=== PATIENT | male | born 1965 | race African-American/Black ===

== ENCOUNTER 2019-02-10 14:18 | Emergency (ER) | payer MEDICAID ==
[~2019-02-10] VITALS: Ht 177.8 cm; Wt 83.9 kg
[2019-02-10 14:37] VITALS: BP 128/82
--- NOTE | 2019-02-10 14:41 | Emergency Room Report ---
History of Present Illness General Chief Complaint: Upper Extremity Injury Source: Patient Present Illness HPI Patient is a 53-year-old male presents for increased pain to his right upper extremity. Patient reports having his right hand caught between a wall and a dumpster. This occurred last night approximately 14 hours to being seen. He reports having a tetanus vaccine in the last 2 years. He is right-hand dominant. He denies other areas of injury. He reports having increased pain to his hand. He had taken Excedrin PM without any improvement. Allergies: Coded Allergies: No Known Allergies (Unverified , 02/10/19) Patient History Past Medical History: see triage record Reviewed Nursing Documentation: PMH: Agreed; PSxH: Agreed Nursing Documentation-PMH Past Medical History: No History, Except For Review of Systems All Other Systems: negative except mentioned in HPI Physical Exam Vital Signs Date Time Temp Pulse Resp B/P (MAP) Pulse Ox O2 Delivery O2 Flow Rate FiO2 02/10/19 14:21 97.9 98 19 128/82 (97) 97 Room Air General Appearance: well appearing, no apparent distress, alert, GCS 15 Head: normocephalic, atraumatic ENT: hearing grossly normal, normal voice Neck: full range of motion, supple Respiratory: no respiratory distress, speaking full sentences Cardiovascular #1: normal inspection Musculoskeletal: decreased range of mation Neurologic: alert, motor strength/tone normal, 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 Differential diagnosis include was not limited to contusion, abrasion, fracture among others. Patient has a benign exam and does not appear to require any laboratory testing at this time. Patient's hand appears to have some soft tissue swelling is concerning for fracture. X-ray imaging was ordered. Patient does not appear to have any significantly decreased range of motion at this time. There is some swelling noted to multiple fingers and patient does have some prior history of HIV. Patient will be given prescription for oral antibiotics. He is advised to follow-up with primary care physician for recheck. Patient was advised to remain off work for the next 3 days. He is to return if worse. Is advised to return if worse. This medical record is generated with [employer] wire bender software. There may be some wire bender discrepancies related to use of this software Last Vital Signs Date Time Temp Pulse Resp B/P (MAP) Pulse Ox O2 Delivery O2 Flow Rate FiO2 02/10/19 14:21 97.9 98 19 128/82 (97) 97 Room Air Status: improved Disposition: HOME, SELF-CARE Condition: Stable Scripts Cephalexin* (KEFLEX*) 500 Mg Capsule 500 MG ORAL EVERY 6 HOURS, #28 CAP Prov: Judd Miles MD 02/10/19 Ibuprofen* (MOTRIN*) 600 Mg Tablet 600 MG ORAL Q6H PRN for For Pain, #30 TAB 0 Refills Prov: Judd Miles MD 02/10/19 Judd Miles MD Feb 10, 2019 14:41
[2019-02-10] MEDS ORDERED: IBUPROFEN600 MG ORAL (14:44)
[2019-02-10] MEDS ORDERED: CEPHALEXIN500 MG ORAL (14:44)
[2019-02-10] MEDS ORDERED: Bacitracin Oint UD TOPIC ONE ×2 (15:25→15:30)
--- NOTE | 2019-02-10 15:30 | NUR ---
ER DISCHARGE NOTE:pt. had injury and skin abrasion on top of right hand, bacitricin and dressing applied Patient is cleared to be discharged per ERMD, pt is aox4, on room air, with stable vital signs. pt was given dc and prescription instructions, pt was able to verbalize understanding, pt is able to ambulate with steady gait. pt took all belongings.
[2019-02-10 15:32] VITALS: BP 128/82
--- NOTE | 2019-02-11 08:39 | Diagnostic Imaging Report ---
Indication: Pain, trauma Technique: 3 views right hand Comparison: none Findings: Exam is somewhat limited as per technologist patient unable to tolerate optimal oblique positioning. There is dorsal soft tissue swelling. No definite acute fractures. No dislocations. Impression: Soft tissue swelling. No definite acute bony trauma
== END 2019-02-10 15:41 | disposition home or self-care (01) ==
LOC: EMR 14:50
DX: S60.221A Contusion of right hand, initial encounter (principal); S60.511A Abrasion of right hand, initial encounter; W23.1XXA Caught, crushed, jammed, or pinched between stationary objects, initial encounter; Y93.9 Activity, unspecified; Y92.9 Unspecified place or not applicable
CPT/HCPCS: 73130; Z7502; 99283

== ENCOUNTER 2019-02-14 12:10 | Emergency (ER) | payer MEDICAID, OTHER ==
[~2019-02-14] VITALS: Ht 177.8 cm; Wt 88.5 kg
[~2019-02-14 12:10] MED LIST: CEPHALEXIN500 MG ORAL; IBUPROFEN600 MG ORAL
--- NOTE | 2019-02-14 12:25 | NUR ---
ED Nurse Note: Pt walked in from home c/o 5/10 right hand pain related to work related incident 1 week ago. Pt wanted to follow up and find out about weather he can return to work. Respirations even and unlabored. Vital signs stable as documented.
--- NOTE | 2019-02-14 12:33 | Emergency Room Report ---
History of Present Illness General Chief Complaint: Pain Source: Patient Present Illness HPI 53-year-old male who was seen at [facility] recently due to head contusion and infection related to his work here requesting a note to go back and be cleared to go back to work. Reports that he is compliant with taking his antibiotics, denies fever and chills, denies any pain at this time. Has full range of motion , no signs of motor or sensory deficits noted, no signs of erythema or cellulitis noted. Denies any new injury, chest pain, shortness of breath, palpitation, or other associated symptoms. Allergies: Coded Allergies: No Known Allergies (Unverified , 02/10/19) Patient History Past Medical History: see triage record Past Surgical History: none Pertinent Family History: none Immunizations: UTD Reviewed Nursing Documentation: PMH: Agreed; PSxH: Agreed Nursing Documentation-PMH Hx Cardiac Problems: Yes - HIV POSITIVE Review of Systems All Other Systems: negative except mentioned in HPI Physical Exam Vital Signs Date Time Temp Pulse Resp B/P (MAP) Pulse Ox O2 Delivery O2 Flow Rate FiO2 02/14/19 12:19 97.9 99 20 109/64 (79) 97 Room Air Sp02 EP Interpretation: reviewed, normal General Appearance: no apparent distress, alert, GCS 15, non-toxic Head: normocephalic, atraumatic Eyes: bilateral eye normal inspection, bilateral eye PERRL ENT: hearing grossly normal, normal pharynx, no angioedema, normal voice Neck: full range of motion, supple/symm/no masses Respiratory: chest non-tender, lungs clear, normal breath sounds, no rhonchi, speaking full sentences Cardiovascular #1: regular rate, rhythm, no edema, no murmur Gastrointestinal: non tender, soft Genitourinary: no CVA tenderness Musculoskeletal: back normal, digits/nails normal, inflammation - Right hand with minimal superficial infection Neurologic: alert, motor strength/tone normal, oriented x3, sensory intact, responsive, speech normal Psychiatric: judgement/insight normal Skin: no rash, other - Superficial infection currently under the care of antibiotics Lymphatic: no adenopathy Medical Decision Making PA Attestation All my diagnosis and treatment plans were reviewed ad discussed with my supervising physician Dr. Cortez Diagnostic Impression: Primary Impression: Hand contusion ER Course 53-year-old male who was seen at [facility] recently due to head contusion and infection related to his work here requesting a note to go back and be cleared to go back to work. Reports that he is compliant with taking his antibiotics, denies fever and chills, denies any pain at this time. Has full range of motion , no signs of motor or sensory deficits noted, no signs of erythema or cellulitis noted. Denies any new injury, chest pain, shortness of breath, palpitation, or other associated symptoms. Ddx considered but are not limited to: Hand sprain, hand sprain, hand fracture Vital signs: are WNL, pt. is afebrile H&PE are most consistent with : Hand contusion ORDERS: None ED INTERVENTIONS: Wound clean and dressed DISCHARGE: At this time pt. is stable for d/c to home. Will provide printed patient care instructions, and any necessary prescriptions. Care plan and follow up instructions have been discussed with the patient prior to discharge. Patient was approved to go back to work with no restrictions Worker's Compensation paperwork was done today as according to patient and registration it was not done previously. Last Vital Signs Date Time Temp Pulse Resp B/P (MAP) Pulse Ox O2 Delivery O2 Flow Rate FiO2 02/14/19 12:19 97.9 99 20 109/64 (79) 97 Room Air Disposition: HOME, SELF-CARE Condition: Stable Patient Instructions: Hand Contusion, [id number] Justine Esparza Feb 14, 2019 12:33
[2019-02-14 12:40] VITALS: BP 109/64
--- NOTE | 2019-02-14 12:40 | NUR ---
ER DISCHARGE NOTE:Patient is cleared to be discharged per ERMD, pt is aox4, on room air, with stable vital signs. pt was given dc instructions, pt was able to verbalize understanding, pt id band removed. pt is able to ambulate with steady gait. pt took all belongings.
== END 2019-02-14 13:30 | disposition home or self-care (01) ==
LOC: EMR 13:22
DX: S60.221A Contusion of right hand, initial encounter (principal); X58.XXXA Exposure to other specified factors, initial encounter; Y92.9 Unspecified place or not applicable; B20 Human immunodeficiency virus [HIV] disease
CPT/HCPCS: 99282